=== PATIENT | female | born 1935 | race Caucasian/White ===

== ENCOUNTER 2023-09-20 12:21 | Emergency (ER) | payer MEDICARE, SELFPAY ==
[2023-09-20 12:43] VITALS: BP 110/70; PULSE 82; RESP 18; TEMP 36.9; O2SAT 97
--- NOTE | 2023-09-20 13:27 | ED.GENADULT ---
HPI - General Adult General Chief complaint: Ear Stated complaint: bilateral ear pain Time Seen by Provider: 09/20/23 13:27 Source: patient, RN notes reviewed and old records reviewed Mode of arrival: ambulatory Limitations: no limitations History of Present Illness HPI narrative: 88-year-old female presents to the [facility] complaints of red eyes, had done a call with primary care provider yesterday, was prescribed ofloxacin, has had 4 doses and patient states that her eyes are not better yet Patient also complaining that for the last 2 nights that she has had ear pain that is been worse on the right than the left. Patient reports it being muffled. Denies any fevers. Onset (ago): day(s) (2) Related Data Home Medications Medication Instructions Recorded Confirmed acetaminophen 500 mg tablet 500 mg PO Q6H 09/20/23 09/20/23 alendronate 70 mg tablet mg PO 09/20/23 aspirin 81 mg tablet,delayed mg 09/20/23 release atorvastatin 20 mg tablet mg 09/20/23 calcium carbonate 600 mg-vitamin 1 tablet PO DAILY 09/20/23 09/20/23 D3 10 mcg (400 unit) tablet (Calcium with Vitamin D) carvedilol 6.25 mg tablet mg 09/20/23 dapagliflozin propanediol 10 mg mg 09/20/23 tablet (Farxiga) levothyroxine 100 mcg tablet mcg 09/20/23 (Synthroid) ofloxacin 0.3 % eye drops drp 09/20/23 omeprazole 20 mg capsule,delayed mg 09/20/23 release sacubitril 24 mg-valsartan 26 mg tablet 09/20/23 tablet (Entresto) spironolactone 25 mg tablet mg 09/20/23 Allergies Allergy/AdvReac Type Severity Reaction Status Date / Time penicillin G Allergy Mild Unknown Verified 09/20/23 12:55 Review of Systems Review of Systems: All systems reviewed & are unremarkable except as noted in HPI and below Constitutional: Constitutional: Reports no additional constitutional complaints Eyes: Eyes: Reports as per HPI and Reports irritation ENT: Reports as per HPI and Reports otalgia Cardiovascular: Cardiovascular: Reports no additional cardiovascular complaints, Denies chest pain and Denies dyspnea Respiratory: Respiratory: Reports no additional respiratory complaints, Denies chest congestion, Denies cough and Denies dyspnea Gastrointestinal: Gastrointestinal: Reports no additional gastrointestinal complaints, Denies abdominal pain, Denies nausea and Denies vomiting Musculoskeletal: Musculoskeletal: Reports no additional musculoskeletal complaints Integumentary/Breasts: Skin/Breast: Reports system reviewed and no additional complaints, except as docu Neurologic: Reports system reviewed and no additional complaints, except as documented Psychiatric: Psychiatric: Reports no additional psychiatric complaints Allergic/Immunologic: Allergic/Immunologic: Reports no additional allergic/immunologic complaints [facility] Past Medical History Medical History (Updated 09/22/23 @ 19:21 by Emperatriz Harman APRN) H/O gastroesophageal reflux (GERD) High cholesterol History of high blood pressure Hypothyroid Osteoporosis Comments At the time of my signature, I reviewed and agree with the nursing past medical, surgical, social, and family history. There is no relevant family history pertinent to the patient complaint. Exam Const: General: cooperative, healthy appearing, comfortable, no acute distress, well developed, alert and well nourished Nutritional Appearance: well nourished Orientation/consciousness: patient oriented x3 Limitations: no limitations HENMT: Head: normal to inspection Ears: hearing grossly normal bilaterally, external ears normal, TM normal on the left, EAC's normal, mastoids normal, no periauricular adenopathy and TM abnormal bulging on the right, wth effusion purulent and erythematous on the right Face/Nose/Sinus: Normal external nose present, Normal nares present, Normal nasal mucous membranes and turbinates present, normal facial exam and face symmetric Face and sinus: normal facial exam and face symmetric Mouth: Yes Normal ora
== END 2023-09-20 13:47 | disposition home or self-care (01) ==
PROVIDERS: Emergency Provider Nurse Practitioner; PCP Internal Medicine Endocrinology, Diabetes & Metabolism
DX: H66.91 Otitis media, unspecified, right ear (principal); K21.9 Gastro-esophageal reflux disease without esophagitis; E78.00 Pure hypercholesterolemia, unspecified; I10 Essential (primary) hypertension; E03.9 Hypothyroidism, unspecified; M81.0 Age-related osteoporosis without current pathological fracture
CPT/HCPCS: 99213; G0463